=== PATIENT | female | born 1955 | race Caucasian/White ===

== ENCOUNTER → 2016-08-04 15:30 | Outpatient (CLI) | payer BC ==
[2011-07-09 11:29] VITALS: BMI 34.1
== END | disposition home or self-care (01) ==
LOC: D.CT 15:30
DX: R10.31 Right lower quadrant pain (principal)

== ENCOUNTER → 2018-06-01 13:59 | Outpatient (CLI) | payer BC ==
[2011-07-09 11:29] VITALS: BMI 34.1
== END | disposition home or self-care (01) ==
LOC: D.US 13:59
DX: R60.0 Localized edema (principal)